=== PATIENT | male | born 1950 | race Caucasian/White ===

== ENCOUNTER → 2017-12-20 | Outpatient (CLI) | payer MEDICARE, BC ==
[2017-12-20 14:48] LABS: Basophils # (A) 0.1 k/uL (0-0.2); Basophils % (A) 1 %; Eosinophils # (A) 0.1 k/uL (0-0.7); Eosinophils % (A) 1 %; HCT 40.4 % (39.0-53.0); HGB 13.5 gm/dL (13.0-17.5); Lymphocytes % (A) 33 %; MCHC 33.4 g/dL (31.0-37.0); MCV 98.9 fL (80.0-100.0); Mean Platelet Volume 7.4; Monocytes # (A) 0.6 k/uL (0-1.0); Monocytes % (A) 9 %; Neutrophils # (A) 3.3 k/uL (1.3-7.7); Neutrophils % (A) 54 %; Platelet Count 285 k/uL (150-450); RBC 4.09 m/uL (4.30-5.90); RDW 14.7 % (11.5-15.5); WBC 6.2 k/uL (3.8-10.6)
[2017-12-20 15:15] LABS: ALT 57 U/L (21-72); AST 56 U/L (17-59); Albumin 4.5 g/dL (3.5-5.0); Blood Urea Nitrogen 18 mg/dL (9-20); C Reactive Protein 7.8 mg/L (<10.0)
[2017-12-20 21:26] LABS: Erythrocyte Sedimentation Rate 30 mm/hr (0-15)
== END | disposition home or self-care (01) ==
LOC: LABWHC1 14:13
PROVIDERS: ATTEND Internal Medicine Rheumatology
DX: D63.8 Anemia in other chronic diseases classified elsewhere (principal); M25.50 Pain in unspecified joint; N18.9 Chronic kidney disease, unspecified; R77.0 Abnormality of albumin; Z79.1 Long term (current) use of non-steroidal anti-inflammatories (NSAID)
CPT/HCPCS: 36415; 82040; 82565; 84450; 84460; 84520; 85025; 85652; 86140

== ENCOUNTER → 2018-03-24 | Outpatient (CLI) | payer MEDICARE, BC ==
[2018-03-24 09:35] LABS: Basophils # (A) 0.1 k/uL (0-0.2); Basophils % (A) 1 %; Eosinophils # (A) 0.2 k/uL (0-0.7); Eosinophils % (A) 3 %; HCT 40.5 % (39.0-53.0); HGB 13.2 gm/dL (13.0-17.5); Lymphocytes # (A) 1.9 k/uL (1.0-4.8); Lymphocytes % (A) 30 %; MCH 33.2 pg (25.0-35.0); MCHC 32.6 g/dL (31.0-37.0); MCV 101.7 fL (80.0-100.0); Macrocytosis Slight; Mean Platelet Volume 6.9; Monocytes # (A) 0.6 k/uL (0-1.0); Monocytes % (A) 9 %; Neutrophils # (A) 3.5 k/uL (1.3-7.7); Neutrophils % (A) 54 %; Platelet Count 272 k/uL (150-450); RBC 3.98 m/uL (4.30-5.90); RDW 15.2 % (11.5-15.5); WBC 6.5 k/uL (3.8-10.6)
[2018-03-24 09:53] LABS: ALT 44 U/L (21-72); AST 37 U/L (17-59); Blood Urea Nitrogen 13 mg/dL (9-20); C Reactive Protein 10.6 mg/L (<10.0)
[2018-03-24 10:25] LABS: Erythrocyte Sedimentation Rate 44 mm/hr (0-15)
== END | disposition home or self-care (01) ==
LOC: LABWHC1 09:18
PROVIDERS: ATTEND Internal Medicine Rheumatology
DX: M05.79 Rheumatoid arthritis with rheumatoid factor of multiple sites without organ or systems involvement (principal); M06.4 Inflammatory polyarthropathy; M25.50 Pain in unspecified joint
CPT/HCPCS: 36415; 82565; 84450; 84460; 84520; 85025; 85652; 86140

== ENCOUNTER → 2018-05-26 | Outpatient (CLI) | payer MEDICARE, BC ==
[2018-05-26 11:29] LABS: Basophils # (A) 0.1 k/uL (0-0.2); Basophils % (A) 1 %; Eosinophils # (A) 0.1 k/uL (0-0.7); Eosinophils % (A) 2 %; HCT 41.3 % (39.0-53.0); HGB 13.3 gm/dL (13.0-17.5); Lymphocytes # (A) 2.4 k/uL (1.0-4.8); Lymphocytes % (A) 35 %; MCH 33.5 pg (25.0-35.0); MCHC 32.2 g/dL (31.0-37.0); MCV 104.1 fL (80.0-100.0); Macrocytosis Moderate; Mean Platelet Volume 7.5; Monocytes # (A) 0.6 k/uL (0-1.0); Monocytes % (A) 8 %; Neutrophils # (A) 3.4 k/uL (1.3-7.7); Neutrophils % (A) 51 %; Platelet Count 293 k/uL (150-450); RBC 3.97 m/uL (4.30-5.90); RDW 15.7 % (11.5-15.5); WBC 6.7 k/uL (3.8-10.6)
[2018-05-26 13:50] LABS: Erythrocyte Sedimentation Rate 23 mm/hr (0-15)
[2018-05-26 18:00] LABS: ALT 31 U/L (10-49); AST 34 U/L (14-35); Alkaline Phosphatase 85 U/L (41-126); C Reactive Protein <0.4 mg/dL (0.0-0.8); Calcium 9.4 mg/dL (8.7-10.3); Carbon Dioxide 27.9 mmol/L (21.6-31.8); Chloride 105 mmol/L (96-109); Cholesterol 162 mg/dL (0-200); Globulin 1.8 g/dL (2.1-3.7); Glucose 98 mg/dL (70-110); LDL Cholesterol,Calculated 86.6 mg/dL (0.0-131.0); Potassium 4.8 mmol/L (3.5-5.5); Prostate Specific Antigen 4.1 ng/mL (0.0-4.5); Sodium 141 mmol/L (135-145); Total Bilirubin 0.5 mg/dL (0.3-1.2); Total Protein 6.3 g/dL (6.2-8.2)
== END | disposition home or self-care (01) ==
LOC: LABWHC1 09:33
PROVIDERS: ATTEND Internal Medicine Geriatric Medicine
DX: Z00.00 Encounter for general adult medical examination without abnormal findings (principal)
CPT/HCPCS: 36415; 80053; 80061; 83036; 84153; 84439; 84443; 85025; 85652; 86140

== ENCOUNTER 2018-08-15 16:40 | Emergency (ER) | payer BC, MEDICARE, OTHER ==
[2018-08-15 16:49] VITALS: BP 156/92; PULSE 76; RESP 18; TEMP 97.8
--- NOTE | 2018-08-15 17:16 | ED ---
General Adult HPI - General Chief complaint: Needlestick/Exposure Stated complaint: [facility]-NEEDLE STICK Source: patient, RN notes reviewed Mode of arrival: ambulatory Limitations: no limitations - History of Present Illness Initial comments: Patient is a 67-year-old male who reports that he was stuck by a skin hook at 1510 today in the OR here [facility]. 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 He says he was in surgery and moved his left hand forward and it was stuck by the sharp. He reports that he already cleaned the wound. He reports he is up-to-date on his tetanus vaccination. He declines HIV prophylaxis at this time and would like to wait for the results from the source patient. Denies any difficulty with moving his hand or decreased ROM. Patient denies any recent fever, chills, shortness of breath, chest pain, back pain, abdominal pain , nausea or vomiting, numbness or tingling, headaches or visual changes, or any other complaints. - Related Data Home Medications Medication Instructions Recorded Confirmed Atorvastatin [Lipitor] 20 mg PO HS 04/08/14 04/10/14 Bisoprolol-Hctz 10-6.25 mg [Ziac 1 each PO DAILY 04/08/14 04/10/14 10-6.25 MG] Omeprazole [PriLOSEC] 20 mg PO AC-BRKFST 04/08/14 04/10/14 amLODIPine BESYLATE [Norvasc] 10 mg PO DAILY 04/08/14 04/10/14 Allergies Allergy/AdvReac Type Severity Reaction Status Date / Time No Known Allergies Allergy Verified 04/10/14 07:57 Review of Systems ROS Statement: Those systems with pertinent positive or pertinent negative responses have been documented in the HPI. ROS Other: All systems not noted in ROS Statement are negative. Past Medical History Past Medical History: GERD/Reflux, Hyperlipidemia, Hypertension History of Any Multi-Drug Resistant Organisms: Unobtainable Past Surgical History: Adenoidectomy, Tonsillectomy Additional Past Surgical History / Comment(s): pylonidal cyst Past Anesthesia/Blood Transfusion Reactions: No Reported Reaction Past Psychological History: No Psychological Hx Reported Smoking Status: Never smoker General Exam Limitations: no limitations Head exam: Present: atraumatic, normocephalic Eye exam: Present: normal appearance Respiratory exam: Present: normal lung sounds bilaterally Cardiovascular Exam: Present: regular rate, normal rhythm Extremities exam: Present: full ROM, other (Tiny red dot between knuckles of 4th and 5th digits left hand.) Course Vital Signs 08/15/18 08/15/18 16:47 17:31 Temperature 97.8 F 97.8 F Pulse Rate 76 76 Respiratory 18 18 Rate Blood Pressure 156/92 156/92 O2 Sat by Pulse 99 99 Oximetry Medical Decision Making - Medical Decision Making Patient would like to be discharged from the ER and receive the lab result later. Case discussed in detail with attending physician Dr. Marin. Disposition Clinical Impression: Needle stick injury Disposition: HOME SELF-CARE Condition: Good Instructions: Needle Stick Injuries (ED) Additional Instructions: Follow-up with your PCP in 1 to 2 days. Return to the emergency department with any concerns. Is patient prescribed a controlled substance at d/c from ED?: No Referrals: Osiel Caceres MD [Primary Care Provider] - 1-2 days Time of Disposition: 17:24
[2018-08-16 08:20] LABS: Hepatitis B Surface AB- Quant 541.9; Hepatitis C IgG Antibody Non-Reactive
[2018-08-16 08:22] LABS: HIV 1 AB Non-Reactive; HIV AB P24 Non-Reactive; HIV P24 AG Non-Reactive
== END 2018-08-15 17:32 | disposition home or self-care (01) ==
LOC: EC 16:40
DX: Z77.21 Contact with and (suspected) exposure to potentially hazardous body fluids (principal); K21.9 Gastro-esophageal reflux disease without esophagitis; E78.5 Hyperlipidemia, unspecified; I10 Essential (primary) hypertension; Z79.899 Other long term (current) drug therapy; W46.0XXA Contact with hypodermic needle, initial encounter
CPT/HCPCS: 36415; 86706; 86803; 87340; 87390; 99282

== ENCOUNTER → 2018-12-26 | Outpatient (CLI) | payer MEDICARE, BC ==
[2018-12-26 14:04] LABS: Basophils # (A) 0.1 k/uL (0-0.2); Basophils % (A) 1 %; Eosinophils # (A) 0.2 k/uL (0-0.7); Eosinophils % (A) 2 %; HGB 13.2 gm/dL (13.0-17.5); Lymphocytes # (A) 1.8 k/uL (1.0-4.8); Lymphocytes % (A) 26 %; MCH 32.2 pg (25.0-35.0); MCHC 31.4 g/dL (31.0-37.0); MCV 102.4 fL (80.0-100.0); Macrocytosis Slight; Mean Platelet Volume 6.8; Monocytes # (A) 0.4 k/uL (0-1.0); Monocytes % (A) 6 %; Neutrophils # (A) 4.2 k/uL (1.3-7.7); Neutrophils % (A) 62 %; Platelet Count 273 k/uL (150-450); WBC 6.7 k/uL (3.8-10.6)
[2018-12-26 18:39] LABS: C Reactive Protein 1.9 mg/dL (0.0-0.8)
[2018-12-26 20:27] LABS: Erythrocyte Sedimentation Rate 28 mm/hr (0-15)
== END | disposition home or self-care (01) ==
LOC: LABWHC1 13:30
PROVIDERS: ATTEND Internal Medicine Rheumatology
DX: M06.4 Inflammatory polyarthropathy (principal); M25.50 Pain in unspecified joint; Z79.899 Other long term (current) drug therapy
CPT/HCPCS: 36415; 82565; 84450; 84460; 84520; 85025; 85652; 86140

== ENCOUNTER → 2019-04-17 | Outpatient (CLI) | payer MEDICARE, BC ==
[2019-04-17 14:38] LABS: Anisocytosis Slight; Basophils # (A) 0.1 k/uL (0-0.2); Basophils % (A) 2 %; Eosinophils # (A) 0.1 k/uL (0-0.7); Eosinophils % (A) 2 %; HCT 39.3 % (39.0-53.0); HGB 13.2 gm/dL (13.0-17.5); Lymphocytes # (A) 2.3 k/uL (1.0-4.8); Lymphocytes % (A) 32 %; MCH 33.7 pg (25.0-35.0); MCHC 33.5 g/dL (31.0-37.0); MCV 100.6 fL (80.0-100.0); Macrocytosis Slight; Mean Platelet Volume 7.6; Monocytes # (A) 0.5 k/uL (0-1.0); Monocytes % (A) 7 %; Neutrophils # (A) 3.8 k/uL (1.3-7.7); Neutrophils % (A) 54 %; Platelet Count 283 k/uL (150-450); RBC 3.91 m/uL (4.30-5.90); RDW 16.9 % (11.5-15.5); WBC 7.1 k/uL (3.8-10.6)
[2019-04-17 15:57] LABS: Erythrocyte Sedimentation Rate 26 mm/hr (0-15)
[2019-04-17 18:53] LABS: African American GFR (CKD) 80.6 (60.0-200.0); Albumin 4.7 g/dL (3.80-4.90); Anion Gap 9.1 mmol/L (4.00-12.00); C Reactive Protein 0.6 mg/dL (0.0-0.8); Calcium 9.6 mg/dL (8.7-10.3); Carbon Dioxide 28.9 mmol/L (21.6-31.8); Potassium 4.4 mmol/L (3.5-5.5)
== END | disposition home or self-care (01) ==
LOC: LABWHC1 13:45
PROVIDERS: ATTEND Internal Medicine Rheumatology
DX: M25.50 Pain in unspecified joint (principal); M06.4 Inflammatory polyarthropathy; Z79.899 Other long term (current) drug therapy
CPT/HCPCS: 36415; 80051; 82040; 82310; 82565; 84450; 84460; 84520; 85025; 85652; 86140

== ENCOUNTER → 2019-10-04 | Outpatient (CLI) | payer MEDICARE, BC ==
[2019-10-04 08:10] LABS: Basophils # (A) 0.1 k/uL (0-0.2); Basophils % (A) 1 %; Eosinophils # (A) 0.2 k/uL (0-0.7); Eosinophils % (A) 3 %; HCT 40.9 % (39.0-53.0); HGB 13.3 gm/dL (13.0-17.5); Lymphocytes # (A) 1.9 k/uL (1.0-4.8); Lymphocytes % (A) 29 %; MCH 33.5 pg (25.0-35.0); MCHC 32.6 g/dL (31.0-37.0); MCV 102.8 fL (80.0-100.0); Macrocytosis Slight; Mean Platelet Volume 7.4; Monocytes # (A) 0.5 k/uL (0-1.0); Monocytes % (A) 7 %; Neutrophils # (A) 3.7 k/uL (1.3-7.7); Neutrophils % (A) 56 %; Platelet Count 284 k/uL (150-450); RBC 3.98 m/uL (4.30-5.90); RDW 14.9 % (11.5-15.5); WBC 6.6 k/uL (3.8-10.6)
[2019-10-04 09:03] LABS: Erythrocyte Sedimentation Rate 14 mm/hr (0-15)
[2019-10-04 16:28] LABS: ALT 30 U/L (10-49); AST 30 U/L (14-35); African American GFR (CKD) 89.9 (60.0-200.0); Alkaline Phosphatase 76 U/L (41-126); Calcium 9.6 mg/dL (8.7-10.3); Carbon Dioxide 30.1 mmol/L (21.6-31.8); Chloride 105 mmol/L (96-109); Chol/HDL Ratio 2.96; Cholesterol 154 mg/dL (0-200); Glucose 130 mg/dL (70-110); LDL Cholesterol,Calculated 77.4 mg/dL (0.0-131.0); Non-African American GFR(CKD) 77.5 (60.0-200.0); Potassium 4.5 mmol/L (3.5-5.5); Sodium 142 mmol/L (135-145); Total Bilirubin 0.5 mg/dL (0.3-1.2); Total Protein 6.4 g/dL (6.2-8.2)
[2019-10-04 16:29] LABS: C Reactive Protein <0.4 mg/dL (0.0-0.8)
[2019-10-04 17:53] LABS: Hemoglobin A1C 6.2 % (4.0-6.0)
== END | disposition home or self-care (01) ==
LOC: LABWHC1 07:10
PROVIDERS: ATTEND Internal Medicine Rheumatology
DX: N40.0 Benign prostatic hyperplasia without lower urinary tract symptoms (principal); R73.9 Hyperglycemia, unspecified; E78.00 Pure hypercholesterolemia, unspecified; E03.9 Hypothyroidism, unspecified; M25.50 Pain in unspecified joint; Z79.899 Other long term (current) drug therapy
CPT/HCPCS: 36415; 80053; 80061; 83036; 84153; 84443; 85025; 85652; 86140

== ENCOUNTER → 2020-03-05 | Outpatient (CLI) | payer MEDICARE, BC ==
[2020-03-05 08:29] LABS: Basophils # (A) 0.1 k/uL (0-0.2); Basophils % (A) 1 %; Eosinophils # (A) 0.1 k/uL (0-0.7); Eosinophils % (A) 2 %; HCT 42.4 % (39.0-53.0); HGB 13.6 gm/dL (13.0-17.5); Lymphocytes # (A) 2.1 k/uL (1.0-4.8); Lymphocytes % (A) 36 %; MCH 33.7 pg (25.0-35.0); MCHC 32.1 g/dL (31.0-37.0); Macrocytosis Moderate; Monocytes # (A) 0.3 k/uL (0-1.0); Monocytes % (A) 6 %; Neutrophils % (A) 52 %; Platelet Count 253 k/uL (150-450); RBC 4.04 m/uL (4.30-5.90); RDW 14.4 % (11.5-15.5); WBC 5.7 k/uL (3.8-10.6)
[2020-03-05 17:16] LABS: Erythrocyte Sedimentation Rate 21 mm/Hr (0-20)
[2020-03-05 17:44] LABS: ALT 49 U/L (10-49); AST 55 U/L (14-35); African American GFR (CKD) 80.1 (60.0-200.0); C Reactive Protein <0.4 mg/dL (0.0-0.8); Calcium 9.8 mg/dL (8.7-10.3); Carbon Dioxide 28.7 mmol/L (21.6-31.8); Chloride 103 mmol/L (96-109); Non-African American GFR(CKD) 69.1 (60.0-200.0); Potassium 4.2 mmol/L (3.5-5.5); Sodium 138 mmol/L (135-145)
== END | disposition home or self-care (01) ==
LOC: LABWHC1 07:14
PROVIDERS: ATTEND Internal Medicine Rheumatology
DX: M25.50 Pain in unspecified joint (principal); M06.4 Inflammatory polyarthropathy; Z79.899 Other long term (current) drug therapy
CPT/HCPCS: 36415; 80051; 82040; 82310; 82565; 84450; 84460; 84520; 85025; 85652; 86140

== ENCOUNTER → 2020-06-19 | Outpatient (CLI) | payer MEDICARE, BC ==
[2020-06-19 08:46] LABS: Basophils # (A) 0.1 k/uL (0-0.2); Basophils % (A) 1 %; Eosinophils # (A) 0.2 k/uL (0-0.7); Eosinophils % (A) 3 %; HCT 42.6 % (39.0-53.0); HGB 13.7 gm/dL (13.0-17.5); Lymphocytes # (A) 2.4 k/uL (1.0-4.8); Lymphocytes % (A) 36 %; MCH 33.5 pg (25.0-35.0); MCHC 32.1 g/dL (31.0-37.0); MCV 104.3 fL (80.0-100.0); Macrocytosis Moderate; Monocytes # (A) 0.4 k/uL (0-1.0); Monocytes % (A) 6 %; Neutrophils # (A) 3.3 k/uL (1.3-7.7); Neutrophils % (A) 51 %; Platelet Count 280 k/uL (150-450); RBC 4.08 m/uL (4.30-5.90); RDW 14.6 % (11.5-15.5); WBC 6.5 k/uL (3.8-10.6)
[2020-06-19 15:14] LABS: % Iron Saturation 14.29 (15.00-50.00); African American GFR (CKD) 89.9 (60.0-200.0); Albumin 4.5 g/dL (3.80-4.90); Albumin/Globulin Ratio 2.05 (1.60-3.17); Anion Gap 8.3 mmol/L (4.00-12.00); Carbon Dioxide 26.7 mmol/L (21.6-31.8); Chol/HDL Ratio 2.93; Globulin 2.2 g/dL (1.6-3.3); LDL Cholesterol,Calculated 86.8 mg/dL (0.0-131.0); Non-African American GFR(CKD) 77.5 (60.0-200.0); Potassium 4.1 mmol/L (3.5-5.5); Total Bilirubin 0.4 mg/dL (0.2-1.2); Total Protein 6.7 g/dL (6.2-8.2); VLDL Calculation 27.2 mg/dL (5.00-40.00)
[2020-06-19 15:21] LABS: PSA Annual Screen 5.9 ng/mL (0.0-4.0); T4, Free (Free Thyroxine) 0.9 ng/dL (0.80-1.80)
[2020-06-19 16:57] LABS: Erythrocyte Sedimentation Rate 31 mm/Hr (0-20)
[2020-06-19 18:20] LABS: Hemoglobin A1C 6.3 % (4.0-6.0)
== END | disposition home or self-care (01) ==
LOC: LABWHC1 07:35
PROVIDERS: ATTEND Internal Medicine Rheumatology
DX: I10 Essential (primary) hypertension (principal); E78.00 Pure hypercholesterolemia, unspecified; N40.0 Benign prostatic hyperplasia without lower urinary tract symptoms; E03.9 Hypothyroidism, unspecified; R73.9 Hyperglycemia, unspecified; Z79.899 Other long term (current) drug therapy; M06.4 Inflammatory polyarthropathy
CPT/HCPCS: 84207; 84439; 82747; 80061; 80053; 85652; 82607; 83540; 83550; 84443; 85025; 83036; 36415; G0103

== ENCOUNTER → 2020-08-19 | Outpatient (CLI) | payer MEDICARE ==
[2020-08-19 13:28] LABS: Basophils # (A) 0.1 k/uL (0-0.2); Basophils % (A) 1 %; Eosinophils # (A) 0.1 k/uL (0-0.7); Eosinophils % (A) 1 %; HCT 40.3 % (39.0-53.0); HGB 13.5 gm/dL (13.0-17.5); Lymphocytes # (A) 2.6 k/uL (1.0-4.8); Lymphocytes % (A) 34 %; MCH 33.9 pg (25.0-35.0); MCHC 33.4 g/dL (31.0-37.0); MCV 101.6 fL (80.0-100.0); Macrocytosis Slight; Mean Platelet Volume 7.5; Monocytes # (A) 0.5 k/uL (0-1.0); Monocytes % (A) 6 %; Neutrophils # (A) 4.3 k/uL (1.3-7.7); Neutrophils % (A) 55 %; Platelet Count 246 k/uL (150-450); RBC 3.97 m/uL (4.30-5.90); RDW 13.4 % (11.5-15.5); WBC 7.7 k/uL (3.8-10.6)
[2020-08-19 14:43] LABS: Erythrocyte Sedimentation Rate 36 mm/hr (0-15)
[2020-08-19 22:56] LABS: % Iron Saturation 11.4 (15.00-50.00); African American GFR (CKD) 102.1 (60.0-200.0); Albumin 4.7 g/dL (3.80-4.90); C Reactive Protein 1.2 mg/dL (0.0-0.8); Calcium 9.8 mg/dL (8.7-10.3); Non-African American GFR(CKD) 88.1 (60.0-200.0)
== END | disposition home or self-care (01) ==
LOC: LABWHC1 12:28
PROVIDERS: ATTEND Internal Medicine Rheumatology
DX: M06.4 Inflammatory polyarthropathy (principal); D63.0 Anemia in neoplastic disease; Z79.899 Other long term (current) drug therapy
CPT/HCPCS: 36415; 82040; 82310; 82565; 82607; 82747; 83540; 83550; 84207; 84450; 84460; 84520; 85025; 85652; 86140

== ENCOUNTER → 2020-12-15 | Outpatient (CLI) | payer MEDICARE ==
[2020-12-15 15:32] LABS: Basophils # (A) 0.04 X 10*3/uL (0.00-0.10); Basophils % (A) 0.6 %; Eosinophils # (A) 0.08 X 10*3/uL (0.04-0.35); Eosinophils % (A) 1.2 %; HCT 41.6 % (39.6-50.0); HGB 13.7 g/dL (13.0-17.0); Lymphocytes # (A) 1.82 X 10*3/uL (0.90-5.00); MCH 33.7 pg (27.0-32.0); MCHC 32.9 g/dL (32.0-37.0); MCV 102.2 fL (80.0-97.0); Mean Platelet Volume 10.2 fL (9.5-12.2); Monocytes # (A) 0.77 X 10*3/uL (0.20-1.00); Monocytes % (A) 11.4 %; Neutrophils # (A) 4.03 X 10*3/uL (1.80-7.70); Neutrophils % (A) 59.7 %; Platelet Count 255 X 10*3/uL (140-440); RBC 4.07 X 10*6/uL (4.40-5.60); WBC 6.75 X 10*3/uL (4.50-10.00)
[2020-12-15 16:45] LABS: Erythrocyte Sedimentation Rate 24 mm/Hr (0-20)
[2020-12-15 18:32] LABS: AST 44 U/L (14-35); African American GFR (CKD) 79.5 (60.0-200.0); Non-African American GFR(CKD) 68.6 (60.0-200.0)
[2020-12-15 18:33] LABS: ALT 35 U/L (10-49); C Reactive Protein <0.4 mg/dL (0.0-0.8)
== END | disposition home or self-care (01) ==
LOC: LABWHC1 08:44
PROVIDERS: ATTEND Internal Medicine Rheumatology
DX: M06.4 Inflammatory polyarthropathy (principal)
CPT/HCPCS: 36415; 82565; 84450; 84460; 84520; 85025; 85652; 86140

== ENCOUNTER → 2021-01-28 | Outpatient (CLI) | payer MEDICARE | END | disposition home or self-care (01) | LOC: LABWHC1 07:03 | PROVIDERS: ATTEND Urology | DX: R97.20 Elevated prostate specific antigen [PSA] (principal) | CPT/HCPCS: 36415; 84153 ==

== ENCOUNTER → 2021-04-15 | Outpatient (CLI) | payer MEDICARE ==
[2021-04-15 10:46] LABS: Basophils # (A) 0.05 X 10*3/uL (0.00-0.10); Basophils % (A) 0.9 %; Eosinophils % (A) 1.8 %; HCT 38.8 % (39.6-50.0); HGB 13.4 g/dL (13.0-17.0); Lymphocytes # (A) 2.03 X 10*3/uL (0.90-5.00); Lymphocytes % (A) 35.9 %; MCH 35.4 pg (27.0-32.0); MCHC 34.5 g/dL (32.0-37.0); MCV 102.6 fL (80.0-97.0); Mean Platelet Volume 9.8 fL (9.5-12.2); Monocytes # (A) 0.62 X 10*3/uL (0.20-1.00); Neutrophils # (A) 2.85 X 10*3/uL (1.80-7.70); Neutrophils % (A) 50.4 %; Platelet Count 246 X 10*3/uL (140-440); RBC 3.78 X 10*6/uL (4.40-5.60); WBC 5.65 X 10*3/uL (4.50-10.00)
[2021-04-15 14:51] LABS: Hemoglobin A1C 6.1 % (4.0-6.0)
[2021-04-15 15:19] LABS: Erythrocyte Sedimentation Rate 35 mm/Hr (0-20)
[2021-04-16 01:57] LABS: African American GFR (CKD) 89.2 (60.0-200.0); Albumin 4.8 g/dL (3.80-4.90); Albumin/Globulin Ratio 2.29 (1.60-3.17); Anion Gap 11.5 mmol/L (4.00-12.00); Calcium 9.8 mg/dL (8.7-10.3); Carbon Dioxide 24.5 mmol/L (21.6-31.8); Chol/HDL Ratio 2.98; Globulin 2.1 g/dL (1.6-3.3); LDL Cholesterol,Calculated 80.6 mg/dL (0.0-131.0); Potassium 4.1 mmol/L (3.5-5.5); Total Bilirubin 0.6 mg/dL (0.3-1.2); Total Protein 6.9 g/dL (6.2-8.2); VLDL Calculation 22.4 mg/dL (5.00-40.00)
[2021-04-16 02:19] LABS: T4, Free (Free Thyroxine) 0.7 ng/dL (0.80-1.80)
== END | disposition home or self-care (01) ==
LOC: LABWHC1 07:13
PROVIDERS: ATTEND Internal Medicine Rheumatology
DX: M06.20 Rheumatoid bursitis, unspecified site (principal); E03.9 Hypothyroidism, unspecified; R73.9 Hyperglycemia, unspecified; M25.50 Pain in unspecified joint
CPT/HCPCS: 36415; 80053; 80061; 83036; 84439; 84443; 85025; 85652; 86140

== ENCOUNTER → 2021-07-14 | Outpatient (CLI) | payer MEDICARE ==
[2021-07-14 19:09] LABS: Basophils # (A) 0.05 X 10*3/uL (0.00-0.10); Basophils % (A) 0.7 %; Eosinophils # (A) 0.07 X 10*3/uL (0.04-0.35); HCT 39.9 % (39.6-50.0); HGB 13.3 g/dL (13.0-17.0); Lymphocytes # (A) 2.12 X 10*3/uL (0.90-5.00); Lymphocytes % (A) 31.6 %; MCHC 33.3 g/dL (32.0-37.0); Monocytes # (A) 0.59 X 10*3/uL (0.20-1.00); Monocytes % (A) 8.8 %; Neutrophils # (A) 3.85 X 10*3/uL (1.80-7.70); Neutrophils % (A) 57.6 %; Platelet Count 262 X 10*3/uL (140-440); RBC 3.91 X 10*6/uL (4.40-5.60); RDW 14.1 % (11.5-14.5)
[2021-07-14 21:01] LABS: ALT 48 U/L (10-49); AST 53 U/L (14-35); African American GFR (CKD) 92.7 (60.0-200.0)
[2021-07-14 21:04] LABS: C Reactive Protein <0.30 mg/dL (0.00-0.80)
[2021-07-14 21:06] LABS: Erythrocyte Sedimentation Rate 25 mm/Hr (0-20)
== END | disposition home or self-care (01) ==
LOC: LABWHC1 14:14
PROVIDERS: ATTEND Internal Medicine Rheumatology
DX: M25.50 Pain in unspecified joint (principal); M06.4 Inflammatory polyarthropathy; Z79.01 Long term (current) use of anticoagulants
CPT/HCPCS: 36415; 80204; 82565; 84450; 84460; 84520; 85025; 85652; 86140

== ENCOUNTER → 2021-12-03 | Outpatient (CLI) | payer MEDICARE ==
[2021-12-03 11:16] LABS: Basophils # (A) 0.06 X 10*3/uL (0.00-0.10); Basophils % (A) 0.9 %; Eosinophils # (A) 0.13 X 10*3/uL (0.04-0.35); Eosinophils % (A) 1.9 %; HCT 39.6 % (39.6-50.0); Immature Grans, Automated 0.1 %; Lymphocytes % (A) 36.6 %; MCH 33.6 pg (27.0-32.0); MCHC 32.8 g/dL (32.0-37.0); MCV 102.3 fL (80.0-97.0); Mean Platelet Volume 9.9 fL (9.5-12.2); Monocytes # (A) 0.58 X 10*3/uL (0.20-1.00); Monocytes % (A) 8.5 %; NRBC Per 100 WBC 0 /100 WBCS (0.0-0.0); Neutrophils # (A) 3.55 X 10*3/uL (1.80-7.70); Platelet Count 253 X 10*3/uL (140-440); RBC 3.87 X 10*6/uL (4.40-5.60); RDW 14.3 % (11.5-14.5); WBC 6.83 X 10*3/uL (4.50-10.00)
[2021-12-03 11:45] LABS: % Iron Saturation 16.58 (15.00-50.00); ALT 38 U/L (10-49); AST 39 U/L (14-35); African American GFR (CKD) 85.5 (60.0-200.0); Albumin 4.2 g/dL (3.8-4.9); Albumin/Globulin Ratio 1.63 (1.60-3.17); Alkaline Phosphatase 68 U/L (41-126); BUN/Creat Ratio 9.81 Ratio (12.00-20.00); Blood Urea Nitrogen 10.1 mg/dL (9.0-27.0); C Reactive Protein <0.30 mg/dL (0.00-0.80); Calcium 9.7 mg/dL (8.7-10.3); Carbon Dioxide 25.3 mmol/L (20.0-27.5); Chloride 101 mmol/L (96-109); Chol/HDL Ratio 2.72 Ratio; Globulin 2.6 g/dL (1.6-3.3); Glucose 120 mg/dL (70-110); Iron 62 ug/dL (65-175); LDL Cholesterol,Calculated 79.9 mg/dL (0.0-131.0); Non-African American GFR(CKD) 73.8 (60.0-200.0); Sodium 139 mmol/L (135-145); Total Iron Binding Capacity 371 ug/dL (228-460); Total Protein 6.8 g/dL (6.2-8.2); VLDL Calculation 15.46 mg/dL (5.00-40.00)
[2021-12-03 12:59] LABS: Erythrocyte Sedimentation Rate 24 mm/Hr (0-20)
== END | disposition home or self-care (01) ==
LOC: LABWHC1 07:11
PROVIDERS: ATTEND Internal Medicine Rheumatology
DX: M06.9 Rheumatoid arthritis, unspecified (principal); R73.9 Hyperglycemia, unspecified; E03.9 Hypothyroidism, unspecified; M25.50 Pain in unspecified joint; M06.4 Inflammatory polyarthropathy; Z79.01 Long term (current) use of anticoagulants
CPT/HCPCS: 36415; 80053; 80061; 82607; 82747; 83036; 83540; 83550; 84207; 84439; 84443; 85025; 85652; 86140

== ENCOUNTER → 2022-05-05 | Outpatient (CLI) | payer MEDICARE ==
[2022-05-05 10:38] LABS: Basophils # (A) 0.05 X 10*3/uL (0.00-0.10); Basophils % (A) 0.7 %; Eosinophils # (A) 0.11 X 10*3/uL (0.04-0.35); Eosinophils % (A) 1.5 %; HCT 40.4 % (39.6-50.0); HGB 13.3 g/dL (13.0-17.0); Immature Grans, Automated 0.1 %; Lymphocytes % (A) 30.3 %; MCH 33.9 pg (27.0-32.0); MCHC 32.9 g/dL (32.0-37.0); MCV 103.1 fL (80.0-97.0); Monocytes # (A) 0.76 X 10*3/uL (0.20-1.00); Monocytes % (A) 10.5 %; NRBC Per 100 WBC 0 /100 WBCS (0.0-0.0); Neutrophils # (A) 4.12 X 10*3/uL (1.80-7.70); Neutrophils % (A) 56.9 %; Platelet Count 253 X 10*3/uL (140-440); RBC 3.92 X 10*6/uL (4.40-5.60); RDW 13.9 % (11.5-14.5); WBC 7.25 X 10*3/uL (4.50-10.00)
[2022-05-05 11:11] LABS: Erythrocyte Sedimentation Rate 13 mm/Hr (0-20)
[2022-05-05 14:38] LABS: African American GFR (CKD) 100.6 (60.0-200.0); Blood Urea Nitrogen 12.4 mg/dL (9.0-27.0); C Reactive Protein 0.9 mg/dL (0.00-0.80); Non-African American GFR(CKD) 86.8 (60.0-200.0)
== END | disposition home or self-care (01) ==
LOC: LABWHC1 07:19
PROVIDERS: ATTEND Internal Medicine Rheumatology
DX: M25.50 Pain in unspecified joint (principal); M06.4 Inflammatory polyarthropathy; Z79.01 Long term (current) use of anticoagulants
CPT/HCPCS: 36415; 82565; 84450; 84460; 84520; 85025; 85652; 86140

== ENCOUNTER → 2022-09-01 | Outpatient (CLI) | payer MEDICARE ==
[2022-09-01 14:29] LABS: Basophils # (A) 0.06 X 10*3/uL (0.00-0.10); Basophils % (A) 0.8 %; Eosinophils # (A) 0.17 X 10*3/uL (0.04-0.35); Eosinophils % (A) 2.1 %; HCT 42.4 % (39.6-50.0); HGB 13.6 g/dL (13.0-17.0); Immature Grans, Automated 0.1 %; Lymphocytes # (A) 1.96 X 10*3/uL (0.90-5.00); Lymphocytes % (A) 24.7 %; MCH 33.2 pg (27.0-32.0); MCHC 32.1 g/dL (32.0-37.0); MCV 103.4 fL (80.0-97.0); Mean Platelet Volume 9.9 fL (9.5-12.2); Monocytes % (A) 12.6 %; NRBC Per 100 WBC 0 /100 WBCS (0.0-0.0); Neutrophils # (A) 4.75 X 10*3/uL (1.80-7.70); Neutrophils % (A) 59.7 %; Platelet Count 219 X 10*3/uL (140-440); RDW 13.9 % (11.5-14.5); WBC 7.95 X 10*3/uL (4.50-10.00)
[2022-09-01 14:48] LABS: Blood Urea Nitrogen 9.9 mg/dL (9.0-27.0); C Reactive Protein 2.8 mg/dL (0.00-0.80); Prostate Specific Antigen 3.7 ng/mL (0.00-4.50)
[2022-09-01 16:47] LABS: Erythrocyte Sedimentation Rate 17 mm/Hr (0-20)
== END | disposition home or self-care (01) ==
LOC: LABWHC1 07:09
PROVIDERS: ATTEND Urology
DX: M06.09 Rheumatoid arthritis without rheumatoid factor, multiple sites (principal); R97.20 Elevated prostate specific antigen [PSA]
CPT/HCPCS: 36415; 80204; 84153; 84450; 84460; 84520; 85025; 85652; 86140

== ENCOUNTER → 2023-02-16 | Outpatient (CLI) | payer MEDICARE ==
[2023-02-16 13:44] LABS: ALT 31 U/L (10-49); AST 35 U/L (14-35); Blood Urea Nitrogen 11.7 mg/dL (9.0-27.0)
[2023-02-16 14:25] LABS: Basophils # (A) 0.06 X 10*3/uL (0.00-0.10); Basophils % (A) 0.8 %; Eosinophils # (A) 0.13 X 10*3/uL (0.04-0.35); Eosinophils % (A) 1.7 %; HCT 41.6 % (39.6-50.0); HGB 13.8 d/dL (12.0-15.0); Lymphocytes # (A) 1.99 X 10*3/uL (0.90-5.00); Lymphocytes % (A) 26.3 %; MCH 34.3 pg (27.0-32.0); MCHC 33.2 d/dL (32.0-37.0); MCV 103.5 FL (80.0-97.0); Mean Platelet Volume 10.4 FL (9.5-12.2); Monocytes % (A) 10.6 %; NRBC Per 100 WBC 0 X 10*3/uL (0.00-0.01); Neutrophils # (A) 4.55 X 10*3/uL (1.80-7.70); Neutrophils % (A) 60.2 %; Platelet Count 260 X 10*3/uL (140-440); RBC 4.02 X 10*6/uL (4.40-5.60); RDW 14.4 % (11.5-14.5); WBC 7.56 X 10*3/uL (4.50-10.00)
[2023-02-16 17:11] LABS: Erythrocyte Sedimentation Rate 21 mm/Hr (0-20)
== END | disposition home or self-care (01) ==
LOC: LABWHC1 07:10
PROVIDERS: ATTEND Internal Medicine Rheumatology
DX: M06.09 Rheumatoid arthritis without rheumatoid factor, multiple sites (principal)
CPT/HCPCS: 36415; 82565; 84450; 84460; 84520; 85025; 85652; 86140

== ENCOUNTER → 2023-06-23 | Outpatient (CLI) | payer MEDICARE ==
[2023-06-23 11:57] LABS: Basophils # (A) 0.07 X 10*3/uL (0.00-0.10); Basophils % (A) 0.9 %; Eosinophils # (A) 0.14 X 10*3/uL (0.04-0.35); Eosinophils % (A) 1.8 %; HCT 39.7 % (39.6-50.0); HGB 13.3 g/dL (13.0-17.0); Lymphocytes # (A) 2.92 X 10*3/uL (0.90-5.00); Lymphocytes % (A) 36.5 %; MCH 33.3 pg (27.0-32.0); MCHC 33.5 g/dL (32.0-37.0); MCV 99.5 FL (80.0-97.0); Mean Platelet Volume 10.3 FL (9.5-12.2); Monocytes # (A) 0.87 X 10*3/uL (0.20-1.00); Monocytes % (A) 10.9 %; NRBC Per 100 WBC 0 X 10*3/uL (0.00-0.01); Neutrophils # (A) 3.99 X 10*3/uL (1.80-7.70); Neutrophils % (A) 49.8 %; Platelet Count 243 X 10*3/uL (140-440); RBC 3.99 X 10*6/uL (4.40-5.60); RDW 13.9 % (11.5-14.5)
[2023-06-23 12:17] LABS: ALT 26 U/L (10-49); AST 32 U/L (14-35); Blood Urea Nitrogen 11.4 mg/dL (9.0-27.0)
[2023-06-23 20:25] LABS: Erythrocyte Sedimentation Rate 21 mm/Hr (0-20)
[2023-06-26 14:46] LABS: Cyclic Citrull Pep IgG Unit 16.3 U/mL (<=3.9); Cyclic Citrullinated Pep IgG Positive (Negative)
== END | disposition home or self-care (01) ==
LOC: LABWHC1 08:18
PROVIDERS: ATTEND Internal Medicine Rheumatology
DX: M25.50 Pain in unspecified joint (principal); M06.4 Inflammatory polyarthropathy; Z79.01 Long term (current) use of anticoagulants
CPT/HCPCS: 36415; 82565; 84450; 84460; 84520; 85025; 85652; 86140; 86200

== ENCOUNTER → 2023-07-27 | Outpatient (CLI) | payer MEDICARE ==
[2023-07-27 11:23] LABS: ALT 21 U/L (10-49); AST 25 U/L (14-35); Albumin 4.5 g/dL (3.8-4.9); Alkaline Phosphatase 81 U/L (41-126); BUN/Creat Ratio 10.89 Ratio (12.00-20.00); Basophils # (A) 0.05 X 10*3/uL (0.00-0.10); Basophils % (A) 0.7 %; Blood Urea Nitrogen 9.8 mg/dL (9.0-27.0); Calcium 9.7 mg/dL (8.7-10.3); Carbon Dioxide 26.3 mmol/L (21.6-31.8); Chloride 100 mmol/L (96-109); Chol/HDL Ratio 3.51 Ratio; Eosinophils # (A) 0.11 X 10*3/uL (0.04-0.35); Eosinophils % (A) 1.5 %; Globulin 2.5 g/dL (1.6-3.3); Glucose 114 mg/dL (70-110); HCT 40.9 % (39.6-50.0); HGB 13.4 g/dL (13.0-17.0); LDL Cholesterol,Calculated 89.1 mg/dL (0.0-131.0); Lymphocytes % (A) 33.4 %; MCH 32.7 pg (27.0-32.0); MCHC 32.8 g/dL (32.0-37.0); MCV 99.8 FL (80.0-97.0); Mean Platelet Volume 10.2 FL (9.5-12.2); Monocytes # (A) 0.89 X 10*3/uL (0.20-1.00); Monocytes % (A) 12.4 %; NRBC Per 100 WBC 0 X 10*3/uL (0.00-0.01); Neutrophils # (A) 3.72 X 10*3/uL (1.80-7.70); Neutrophils % (A) 51.7 %; Platelet Count 285 X 10*3/uL (140-440); RDW 14.4 % (11.5-14.5); Sodium 140 mmol/L (135-145); T4, Free (Free Thyroxine) 1.12 ng/dL (0.80-1.80); Total Bilirubin 0.3 mg/dL (0.3-1.2); WBC 7.19 X 10*3/uL (4.50-10.00)
[2023-07-27 15:01] LABS: Erythrocyte Sedimentation Rate 37 mm/Hr (0-20)
== END | disposition home or self-care (01) ==
LOC: LABWHC1 07:03
PROVIDERS: ATTEND Internal Medicine Rheumatology
DX: Z00.00 Encounter for general adult medical examination without abnormal findings (principal); E03.9 Hypothyroidism, unspecified; M25.50 Pain in unspecified joint; M06.4 Inflammatory polyarthropathy; R73.9 Hyperglycemia, unspecified; Z79.01 Long term (current) use of anticoagulants
CPT/HCPCS: 36415; 80053; 80061; 82043; 82570; 83036; 84439; 84443; 85025; 85652

== ENCOUNTER → 2023-11-21 | Outpatient (CLI) | payer MEDICARE ==
[2023-11-21 11:40] LABS: Basophils # (A) 0.05 X 10*3/uL (0.00-0.10); Basophils % (A) 0.7 %; Eosinophils # (A) 0.12 X 10*3/uL (0.04-0.35); Eosinophils % (A) 1.7 %; HCT 39.4 % (39.6-50.0); HGB 13.2 g/dL (13.0-17.0); Lymphocytes # (A) 2.01 X 10*3/uL (0.90-5.00); MCH 32.8 pg (27.0-32.0); MCHC 33.5 g/dL (32.0-37.0); MCV 97.8 FL (80.0-97.0); Mean Platelet Volume 10.2 FL (9.5-12.2); Monocytes # (A) 0.75 X 10*3/uL (0.20-1.00); Monocytes % (A) 10.8 %; NRBC Per 100 WBC 0 X 10*3/uL (0.00-0.01); Neutrophils # (A) 3.99 X 10*3/uL (1.80-7.70); Neutrophils % (A) 57.7 %; Platelet Count 244 X 10*3/uL (140-440); RBC 4.03 X 10*6/uL (4.40-5.60); RDW 14.6 % (11.5-14.5); WBC 6.93 X 10*3/uL (4.50-10.00)
[2023-11-21 12:03] LABS: Erythrocyte Sedimentation Rate 16 mm/Hr (0-20)
[2023-11-21 16:32] LABS: ALT 31 U/L (10-49); AST 43 U/L (14-35); Albumin 4.4 g/dL (3.8-4.9); Albumin/Globulin Ratio 1.83 Ratio (1.60-3.17); Alkaline Phosphatase 73 U/L (41-126); BUN/Creat Ratio 13.78 Ratio (12.00-20.00); Blood Urea Nitrogen 12.4 mg/dL (9.0-27.0); Carbon Dioxide 25.1 mmol/L (21.6-31.8); Chloride 100 mmol/L (96-109); Chol/HDL Ratio 2.63 Ratio; Globulin 2.4 g/dL (1.6-3.3); Glucose 118 mg/dL (70-110); LDL Cholesterol,Calculated 76.7 mg/dL (0.0-131.0); Potassium 4.3 mmol/L (3.5-5.5); Sodium 138 mmol/L (135-145); T4, Free (Free Thyroxine) 1.23 ng/dL (0.80-1.80); Total Bilirubin 0.6 mg/dL (0.3-1.2); Total Protein 6.8 g/dL (6.2-8.2); VLDL Calculation 18.14 mg/dL (5.00-40.00)
[2023-11-21 22:17] LABS: Microalbumin Creatinine Ratio <17 mg/g Cr (0-30); Urine Creatinine 70.3 mg/dL (39.0-259.0)
== END | disposition home or self-care (01) ==
LOC: LABWHC1 08:14
PROVIDERS: ATTEND Internal Medicine Rheumatology
DX: I10 Essential (primary) hypertension (principal); E03.9 Hypothyroidism, unspecified; N40.0 Benign prostatic hyperplasia without lower urinary tract symptoms; Z71.85 Encounter for immunization safety counseling; M79.641 Pain in right hand; M79.642 Pain in left hand; R73.9 Hyperglycemia, unspecified; R70.0 Elevated erythrocyte sedimentation rate; Z79.61 Long term (current) use of immunomodulator
CPT/HCPCS: 36415; 80053; 80061; 82043; 82570; 83036; 84439; 84443; 85025; 85652; 86140

== ENCOUNTER → 2024-04-18 | Outpatient (CLI) | payer MEDICARE ==
[2024-04-18 15:35] LABS: Basophils # (A) 0.07 X 10*3/uL (0.00-0.10); Basophils % (A) 0.9 %; Eosinophils % (A) 1.3 %; HCT 38.2 % (39.6-50.0); HGB 12.7 g/dL (13.0-17.0); Lymphocytes # (A) 2.56 X 10*3/uL (0.90-5.00); Lymphocytes % (A) 33.8 %; MCH 32.4 pg (27.0-32.0); MCHC 33.2 g/dL (32.0-37.0); MCV 97.4 FL (80.0-97.0); Mean Platelet Volume 9.9 FL (9.5-12.2); Monocytes # (A) 0.78 X 10*3/uL (0.20-1.00); Monocytes % (A) 10.3 %; NRBC Per 100 WBC 0 X 10*3/uL (0.00-0.01); Neutrophils # (A) 4.05 X 10*3/uL (1.80-7.70); Neutrophils % (A) 53.4 %; Platelet Count 288 X 10*3/uL (140-440); RBC 3.92 X 10*6/uL (4.40-5.60); RDW 15.2 % (11.5-14.5); WBC 7.58 X 10*3/uL (4.50-10.00)
[2024-04-18 15:36] LABS: Blood Urea Nitrogen 8.7 mg/dL (9.0-27.0)
[2024-04-18 15:37] LABS: ALT 18 U/L (10-49); AST 26 U/L (14-35)
[2024-04-18 15:58] LABS: Erythrocyte Sedimentation Rate 24 mm/Hr (0-20)
== END | disposition home or self-care (01) ==
LOC: LABWHC1 10:54
PROVIDERS: ATTEND Internal Medicine Rheumatology
DX: M25.50 Pain in unspecified joint
CPT/HCPCS: 36415; 82565; 84450; 84460; 84520; 85025; 85652; 86140

== ENCOUNTER 2024-08-09 05:53 | Day surgery (SDC) | payer MEDICARE ==
[2024-08-09] MEDS ORDERED: LACTATED RINGERS 1,000 ML IV SCH (05:55)
[2024-08-09 06:38] VITALS: TEMP 97.7
[2024-08-09] MEDS: SODIUM CHLORIDE 0.9% 1,000 ML IV ONE (06:45)
[2024-08-09] MEDS ORDERED: LIDOCAINE 1% INJ 10MG/ML (20 ML MDV) ONE (07:00)
[2024-08-09] MEDS ORDERED: PROPOFOL 10 MG/ML 20 ML VIAL IV ONE (07:00)
--- NOTE | 2024-08-09 07:22 | P.PCN ---
Date of Procedure: 08/09/24 Procedure(s) Performed: BRIEF HISTORY: Patient is a 73-year-old, pleasant, white male scheduled endoscopy as a part of evaluation of abnormal CAT scan. He has been having epigastric discomfort for the last 6 weeks associated with progressive weight loss of 15 pounds. He had a CT of the abdomen pelvis done 2 days ago that showed multiple lesions in the liver suspicious for metastasis and thickening in the proximal stomach.. PROCEDURE PERFORMED: Esophagogastroduodenoscopy with biopsy. PREOPERATIVE DIAGNOSIS: Epigastric discomfort, abnormal CAT scan revealing multiple liver lesions and thickening of the proximal stomach. IV sedation per anesthesia. PROCEDURE: After informed consent was obtained, the patient was brought into the endoscopy unit. IV sedation was administered by Anesthesia under continuous monitoring. Initially the Olympus GIF-140 video endoscope was inserted into the mouth. Esophagus intubated without any difficulty. It was gradually advanced into the stomach and duodenum and carefully examined. The bulb of the duodenum appeared normal. Second part of the duodenum there was a 7 mm polyp that was removed by cold biopsy. The scope at this time was withdrawn to the stomach, adequately insufflated with air, and upon careful examination, mucosa of the antrum, body, and the fundus appeared normal. The scope was then withdrawn to the esophagus and the GE junction was located at 41 cm from the incisors. There was a large GE junction ulcerated mass identified which was extending into the cardia of the stomach and multiple biopsies were done from this area. In the distal esophagus at 38 cm from the incisors there was another 2 cm polypoid lesion identified which was also biopsied. The rest of the esophagus appeared normal. There were no erosions or ulcerations seen and the patient tolerated the procedure well. IMPRESSION: 1. Large ulcerated mass involving the GE junction extending to the cardia of the stomach status post multiple biopsies. 2. 2 cm distal esophageal polypoid lesion at 38 cm from the incisors status post multiple biopsies 3. 7 mm duodenal polyp status post biopsy. RECOMMENDATIONS: The findings of this examination were discussed with the patient as well as his family. He was advised to follow with the biopsy results. Referred to oncology for further management..
[2024-08-09 07:41] VITALS: BP 130/75; PULSE 73; RESP 16
== END 2024-08-09 08:19 | disposition home or self-care (01) ==
LOC: ORWHC2ENDO 05:53
PROVIDERS: ATTEND Internal Medicine Gastroenterology
DX: C15.5 Malignant neoplasm of lower third of esophagus (principal); K31.7 Polyp of stomach and duodenum; K22.81 Esophageal polyp; Z98.890 Other specified postprocedural states
CPT/HCPCS: 88305; 88342; 88341; 43239; J2003; J2704

== ENCOUNTER 2024-08-19 10:00 | Day surgery (SDC) | payer MEDICARE ==
[~2024-08-19 10:00] MED LIST: HYDROmorphone 0.5 MG/0.5 ML SYRINGE IVP PRN; LACTATED RINGERS 1,000 ML IV SCH; LIDOCAINE 1% (10MG/ML) FOR IV START INTRADERMA PRN; Pre Op ABX Message 1 EACH MISC MISCELLANE ONE; fentaNYL (PF) 50 MCG/ML 2 ML AMP IVP PRN
[2024-08-19] MEDS: IV FLUID CONTINUATION 1,000 ML IV ONE (10:30)
[2024-08-19] MEDS: ONDANSETRON 4 MG/2 ML VIAL IVP ONE (10:58)
[2024-08-19] MEDS: DEXAMETHASONE SOD PHOSPHATE 4 MG/ML 1 ML VIAL IV ONE (10:58)
[2024-08-19] MEDS: MIDAZOLAM 2 MG/2 ML VIAL IV PRN (11:13)
[2024-08-19] MEDS ORDERED: fentaNYL (PF) 50 MCG/ML 2 ML AMP ONE (11:15)
[2024-08-19] MEDS ORDERED: LIDOCAINE 1% INJ 10MG/ML (20 ML MDV) ONE (11:15)
[2024-08-19] MEDS ORDERED: SUCCINYLCHOLINE CHLORIDE 200 MG/10 ML VIAL IV ONE (11:15)
[2024-08-19] MEDS ORDERED: PROPOFOL 10 MG/ML 20 ML VIAL IV ONE (11:15)
[2024-08-19] MEDS: SODIUM CHLORIDE 0.9% 100 ML with ceFAZolin 1,000 MG IV ONE (11:20)
[2024-08-19] MEDS: BUPIVACAINE (PF) 0.25% 30 ML VIAL SQ ONE (11:38)
[2024-08-19 12:14] VITALS: TEMP 97
--- NOTE | 2024-08-19 12:15 | FL ---
EXAMINATION TYPE: FL guided central line placemt HISTORY: Fluoroscopy time Impression: 1. Fluoroscopy support provided to the referring physician. [facility], , 08/19/2024 12:13 PM
--- NOTE | 2024-08-19 12:42 | XR ---
EXAMINATION TYPE: XR chest 1V confirm line plcmt DATE OF EXAM: 08/19/2024 COMPARISON: NONE CLINICAL INDICATION: Male, 73 years old with history of Mediport placement; , TECHNIQUE: XR chest 1V confirm line plcmt views of the chest. FINDINGS: Mediport catheter seen with the tip overlying the SVC. No pneumothorax. Lungs are clear. Heart size n ormal. Osseous structures intact. Atherosclerotic change aorta. IMPRESSION: 1. Mediport catheter seen with tip overlying SVC. No pneumothorax. [facility], , 08/19/2024 12:40 PM
[2024-08-19 13:43] VITALS: BP 117/74; PULSE 65; RESP 20
--- NOTE | 2024-08-19 14:11 | P.OP ---
Date of Procedure: 08/19/24 Preoperative Diagnosis: Esophageal cancer Postoperative Diagnosis: Esophageal cancer Procedure(s) Performed: Mediport placement with fluoroscopic guidance Anesthesia: DAY Surgeon: Demetrius Jimenez Pathology: none sent Condition: stable Disposition: same day Indications for Procedure: 73-year-old male with recent diagnosis of esophageal cancer. Plan is for induction of chemotherapy after discussion with oncologist. Risks, benefits and alternatives were provided to the patient prior to Mediport placement. Operative Findings: Appropriate flush and withdrawal from Mediport site Description of Procedure: Patient was brought to the operating suite and placed in supine position on the operating table. Sedation was provided by anesthesia and the patient underwent endotracheal intubation. Patient was then prepped and draped in regular sterile fashion. Local anesthetic was administered and the right subclavian vein was entered on first attempt. Guidewire was then placed and location was confirmed under fluoroscopic guidance. At this point local anesthetic was administered to create the pocket for the port. Incision was made and dissection was carried to the prepectoralis fascia. Dissection was carried to free up space for the port. At this point a small incision was made at the guidewire insertion site and a tunnel was created between this guidewire site and the pocket and catheter was placed. Dilator sheath was then placed over the guidewire under fluoroscopic guidance and catheter was then placed. Catheter was noted to be in appropriate position and was connected to the port and port was placed in the pocket. Appropriate flush and withdrawal was noted from the port site. The port was then secured to the prepectoralis fascia in 2 separate locations. Fluoroscopic guidance confirmed location with no kinks in the catheter. Heparin lock was placed. The wound was then closed in layers with 3-0 Vicryl and 4-0 Vicryl subcuticular suture. Sterile dressing was applied. The patient was then taken to postanesthesia care unit in stable condition with pending chest x-ray.
== END 2024-08-19 13:44 | disposition home or self-care (01) ==
LOC: OR 10:00
PROVIDERS: ATTEND Surgery
DX: C15.9 Malignant neoplasm of esophagus, unspecified (principal); E78.5 Hyperlipidemia, unspecified; I10 Essential (primary) hypertension; K21.9 Gastro-esophageal reflux disease without esophagitis; Z79.899 Other long term (current) drug therapy
CPT/HCPCS: 77001; 36561; C1788; J2250; J0330; J1100; J2405; J0690; J2003; J3010; J1642; J2704; J0665

== ENCOUNTER → 2025-02-19 | Outpatient (CLI) | payer MEDICARE ==
--- NOTE | 2025-02-20 13:53 | CA ---
Transthoracic Echo Report Name: Oscar Vega Age: 74 Gender: M : 1950 Exam Date: 02/19/2025 11:36 Exam Location: [facility] Ht (in): 66 Wt (lb): 135 Ordering Physician: Bradley Winkler MD Attending/Referring Phys: Bradley Winkler MD Psychosocial Rehabilitation Counselor Claudia Louie RDCS Procedure CPT: Indications: Z01.818 Chemo Cardiac Hx: Technical Quality: Good Contrast 1: Total Dose (mL): Contrast 2: Total Dose (mL): MEASUREMENTS (Male / Female) Normal Values 2D ECHO LV Diastolic Diameter PLAX 4.4 cm 4.2 - 5.9 / 3.9 - 5.3 cm LV Systolic Diameter PLAX 3.1 cm IVS Diastolic Thickness 1.0 cm 0.6 - 1.0 / 0.6 - 0.9 cm LVPW Diastolic Thickness 0.9 cm 0.6 - 1.0 / 0.6 - 0.9 cm LV Relative Wall Thickness 0.4 RV Internal Dim ED PLAX 3.4 cm LA Systolic Diameter LX 3.0 cm 3.0 - 4.0 / 2.7 - 3.8 cm LV Diastolic Volume MOD 4C 90.3 cm??? LV Systolic Volume MOD 4C 35.8 cm??? LV Ejection Fraction MOD 4C 60.4 % LV Cardiac Index MOD 4C 2226.8 cm???/min???m??? LV Diastolic Length 4C 8.9 cm LV Systolic Length 4C 6.8 cm LV Diastolic Volume MOD 2C 110.2 cm??? LV Systolic Volume MOD 2C 54.9 cm??? LV Ejection Fraction MOD 2C 50.1 % LV Cardiac Index MOD 2C 2256.8 cm???/min???m??? LV Diastolic Length 2C 9.4 cm LV Systolic Length 2C 7.6 cm LA Volume 71.2 cm??? 18 - 58 / 22 - 52 cm??? LA Volume Index 42.1 cm???/m??? 16 - 28 cm???/m??? M-MODE Aortic Root Diameter MM 3.8 cm AV Cusp Separation MM 2.2 cm DOPPLER AV Peak Velocity 125.8 cm/s AV Peak Gradient 6.3 mmHg AV Mean Velocity 76.4 cm/s AV Mean Gradient 2.7 mmHg AV Velocity Time Integral 24.7 cm LVOT Peak Velocity 116.3 cm/s LVOT Peak Gradient 5.4 mmHg LVOT Velocity Time Integral 22.8 cm MV Area PHT 2.7 cm??? Mitral E Point Velocity 86.9 cm/s Mitral A Point Velocity 86.9 cm/s Mitral E to A Ratio 1.0 MV Deceleration Time 285.7 ms TR Peak Velocity 173.0 cm/s TR Peak Gradient 12.0 mmHg Right Ventricular Systolic Press 17.0 mmHg FINDINGS Left Ventricle Left ventricular ejection fraction is estimated at 55-60 %. Left ventricular cavity size normal. Left ventricular wall thickness normal. Normal left ventricular wall motion. Systolic strain average -20% Right Ventricle Normal right ventricular size. Right ventricular systolic pressure within normal limits. Right Atrium Normal right atrial size. No right atrial thrombus or mass seen. Left Atrium Mild increased left atrial volume. No left atrial thrombus or mass present. Mitral Valve Mitral valve thickened. No evidence for mitral valve prolapse. No mitral stenosis. Trace mitral regurgitation. Aortic Valve Trileaflet aortic valve. Thickened aortic valve without stenosis. No aortic regurgitation. Tricuspid Valve Structurally normal tricuspid valve. Trace to mild tricuspid regurgitation. Pulmonic Valve Structurally normal pulmonic valve. Trace to mild pulmonic regurgitation. Pericardium No pericardial effusion. Aorta Mild aortic dilatation at the level of the sinuses of valsalva 38 mm CONCLUSIONS LVEF 55% No obvious regional wall motion abnormality Global longitudinal strain estimated at -20.5%. (Normal is -20%) Normal RV size and systolic function Mild left atrial dilatation. No significant valvular dysfunction Previewed by: Dr Jan Aguirre (Electronically Signed) Final Date: 19 February 2025 12:58
== END | disposition home or self-care (01) ==
LOC: RADECHMAIN 11:30
PROVIDERS: ATTEND Internal Medicine Hematology & Oncology
DX: Z01.818 Encounter for other preprocedural examination (principal); C15.5 Malignant neoplasm of lower third of esophagus; I10 Essential (primary) hypertension; E78.5 Hyperlipidemia, unspecified; E03.9 Hypothyroidism, unspecified; I51.7 Cardiomegaly
CPT/HCPCS: 93306